=== PATIENT | female | born 1970 | race Caucasian/White ===

== ENCOUNTER 2016-09-02 08:54 | Emergency (ER) | payer BC, OTHER ==
[~2016-09-02] VITALS: Ht 157.5 cm; Wt 81.6 kg
--- NOTE | 2016-09-02 09:40 | NUR ---
Pt stated there is no chance she can be and signed screen form for CT.
[2016-09-02] MEDS ORDERED: IBUPROFEN 800 MG TABLET PO ONE (09:45)
[2016-09-02] MEDS ORDERED: IBUPROFEN 800 MG TABLET ONE (09:50)
--- NOTE | 2016-09-02 10:38 | NUR ---
Pt resting in [facility], states her pain is improved. Pend CT.
--- NOTE | 2016-09-02 10:45 | NUR ---
Pt to CT via [facility] pulido noted.
[2016-09-02] MEDS ORDERED: TERBUTALINE SULFATE 1 MG/1 ML VIAL SQ ONE (11:30)
[2016-09-02] MEDS ORDERED: HYDROMORPHONE 1 MG/1 ML DISP.SYRIN IV ONE (11:30)
--- NOTE | 2016-09-02 11:52 | NUR ---
Patient discharged to home in stable conditon. Written and verbal after care instructions given. Patient verbalizes understanding of instructions. Stressed follow up with pmd or return to ER for worsening s/s.
== END 2016-09-02 11:53 | disposition home or self-care (01) ==
LOC: ER 08:54
DX: M54.5 Low back pain (principal); Z88.2 Allergy status to sulfonamides
CPT/HCPCS: 72131; 99284; A4663

== ENCOUNTER 2017-02-03 21:13 | Emergency (ER) | payer BC, OTHER ==
[~2017-02-03] VITALS: Ht 157.5 cm; Wt 81.6 kg
[2017-02-03] MEDS ORDERED: ALBUTEROL SULFATE 2.5 MG/3 ML NEBU NEB ONE (22:45)
[2017-02-03] MEDS ORDERED: BENZONATATE 100 MG CAPSULE PO ONE (22:45)
[2017-02-03] MEDS ORDERED: ONDANSETRON ODT 4 MG TAB.RAPDIS SL ONE (22:45)
--- NOTE | 2017-02-03 22:48 | NUR ---
Pt c/o cough, non-productive, since Sunday, and dizziness. LS diminished all abreu, slight exp. wheeze LL lobe Pt denies CP, SOB, n/v, no other complaints, no distress noted.
[2017-02-03] MEDS ORDERED: ALBUTEROL SULFATE 2.5 MG/3 ML NEBU ONE (22:54)
[2017-02-03] MEDS ORDERED: ONDANSETRON ODT 4 MG TAB.RAPDIS ONE (22:55)
[2017-02-03] MEDS ORDERED: BENZONATATE 100 MG CAPSULE ONE (22:58)
--- NOTE | 2017-02-04 01:30 | NUR ---
Called report to [facility], [facility], , . Accepting: Dr. Nathan
--- NOTE | 2017-02-04 01:45 | NUR ---
Patient discharged to home in stable conditon. Written and verbal after care instructions given. Patient verbalizes understanding of instructions.
== END 2017-02-04 01:35 | disposition home or self-care (01) ==
LOC: ER 21:14
DX: J20.9 Acute bronchitis, unspecified (principal); Z88.2 Allergy status to sulfonamides
CPT/HCPCS: 71010; 94640; 99283; A4663; Q0162

== ENCOUNTER 2018-10-05 22:13 | Emergency (ER) | payer BC, OTHER ==
[~2018-10-05] VITALS: Ht 157.5 cm; Wt 89.8 kg
--- NOTE | 2018-10-05 22:16 | NUR ---
PT RECEIVED FROM HOME C/O BURNING UPON URINATION, WHITISH/CHEESELIKE VAGINAL DISCHARGE, AND VULVAR ITCHING FOR 2DAYS Denies fever, chills, headache, dizziness, vision changes, chest pain, SOB, cough, abdominal pain, n/v/d, dysuria, urinary frequency/urgency, rash, and joint pain +abnormal/malodorous vaginal discharge, +vaginal itching. -SURGERIES/ +HX OF TAKING UNRECALLED PILL FOR SAME ISSUES BEFORE MD AT BEDSIDE FOR HX AND PHYSICAL
--- NOTE | 2018-10-05 22:33 | NUR ---
Female shape hand, Cindy, accompanied female patient for pelvic exam with Dr. Joseph.
--- NOTE | 2018-10-05 22:33 | NUR ---
provided safety with siderails x2 up, provided privacy and draped. Pelvic exam done BY ER MD. Chaperoned by RN RESEARCH(Ben BUTLER),visual revealed Normal nulliparous vulva. Vagina and cervix demonstrate milky white discharge, noted faint odor. MD palpated for ovaries, uterus. Visual inspection of anus demonstrates no lesions, fissures, or hemorrhoids. reassured. pt compliant and able to tolerate procedure. NAD
--- NOTE | 2018-10-05 22:35 | NUR ---
Patient discharged to home in stable conditon. Written and verbal after care instructions given. Patient verbalizes understanding of instructions. ambulatory. all belongings with patient
[2018-10-05 23:27] LABS: *BILIRUBIN,URIN NEGATIVE (NEGATIVE); *BLOOD, URINE NEGATIVE (NEGATIVE); *COLOR,URINE YELLOW (YELLOW); *KETONES,URINE TRACE (NEGATIVE); *UROBILINOGEN,URINE 0.2 E.U./dl (NORMAL); LEUKOCYTE ESTERASE ,URINE 1+ (NEGATIVE); NITRITE, URINE NEGATIVE (NEGATIVE); PH,URINE 5.5 (5.0-8.0); UGLUCOSE NEGATIVE (NEGATIVE)
[2018-10-05 23:28] LABS: *CLARITY,URINE HAZY (CLEAR)
[2018-10-05 23:30] LABS: *URINE HCG, QUAL NEGATIVE (NEGATIVE)
[2018-10-05 23:36] LABS: BACTERIA,URINE FEW /HPF (NONE SEEN); MUCUS,URINE MANY /LPF (0-FEW); RBC,URINE 0-3 /HPF (0-3); SQUAMOUS EPITHELIAL CELL,UR MANY /HPF (NONE SEEN); YEAST,URINE FEW /HPF (NONE SEEN)
[2018-10-06] MEDS ORDERED: FLUCONAZOLE 100 MG TABLET ONE
[2018-10-06] MEDS ORDERED: METRONIDAZOLE 500 MG TABLET ONE
[2018-10-06] MEDS ORDERED: METRONIDAZOLE 500 MG TABLET PO ONE
[2018-10-06] MEDS ORDERED: FLUCONAZOLE 100 MG TABLET PO ONE
[2018-10-06 00:34] VITALS: BP 113/78
== END 2018-10-06 00:05 | disposition home or self-care (01) ==
LOC: ER 22:15
DX: B37.3 Candidiasis of vulva and vagina (principal); N76.0 Acute vaginitis; R30.0 Dysuria; Z88.2 Allergy status to sulfonamides
CPT/HCPCS: 84703; 87081; 87086; 87110; 87210; A4663